=== PATIENT | male | born 1990 | race Caucasian/White ===

== ENCOUNTER 2017-04-10 18:15 | Emergency (ER) | payer SELFPAY ==
[2017-04-10 18:22] VITALS: BP 108/53; PULSE 106; RESP 18; TEMP 38.2; O2SAT 95; BMI 25.2
--- NOTE | 2017-04-10 19:41 | ED.DCSUM_ITS ---
- ER Visit Summary Date of Service: 04/10/17 Chief Complaint: Vomiting and diarrhea History of Present Illness: The patient is a 27 M presenting with abdominal pain , nausea, vomiting, diarrhea. States this started this morning. He complains of abdominal pain only with vomiting. He has low back pain. He has had multiple episodes of vomiting and 3 episodes of diarrhea today. He denies blood in his stool. Denies other complaints. Physical Examination: Vitals are stable. Temperature 100.8. Alert no acute distress. HEENT exam is unremarkable. Neck is supple. Lungs are clear and equal bilaterally. Heart is regular rate and rhythm. Abdomen is soft nontender nondistended. No guarding or rebound Back: mild right CVA tenderness Extremities are unremarkable. Skin is warm and dry. Remainder of exam is unremarkable. Emergency Department Course and Treatment: Patient is given IV fluids, Toradol, Zofran. CBC shows a white count of 18.7. BUN and creatinine are 19, 1.31. He was given additional IV fluids. Urinalysis is unremarkable. Patient is feeling much improved in the emergency department. Abdominal exam continues to be soft and nontender with no rebound or guarding. He is able to tolerate p.o. He is requesting to go home. He is given Dr. Mcnulty automotive service professional for no doc for follow-up. He is advised return to ED for worsening complaints. Disposition: Discharge home Impression: Vomiting and diarrhea This note was generated with [employer] dictation software. It may contain incorrect words, spelling, and punctuation that were not noted in review of the chart prior to signing ED Disposition - Plan for ED Patient: Chief Complaint: Nausea/Vomiting/Diarrhea Referrals: Care Physician,No Primary [Primary Care Provider] -
[2017-04-10] MEDS: 0.9% Normal Saline 1,000 ML 1000 ML IV (19:54)
[2017-04-10] MEDS: Ondansetron 4 MG/2 ML Vial IV (19:55)
[2017-04-10] MEDS: Ketorolac 30 MG/ML Syringe IV (19:55)
[2017-04-10 20:02] LABS: Anion Gap 7 (5-15); BUN 19 mg/dL (7-18); BUN/Creat Ratio 14.5 RATIO (10-20); Calcium,Total 8.9 mg/dL (8.5-10.1); Chloride 107 mmol/L (98-107); Creatinine, Serum 1.31 mg/dL (0.70-1.30); EST Glomerular Filtration Rate 70 mL/min (>60); Est Glom Filt Rate - Afr Amer 84 mL/min (>60); Estimated Creatinine Clearance 87.46 ml/min; Glucose 110 mg/dL (70-110); Potassium 4.4 mmol/L (3.5-5.1); Sodium Level 141 mmol/L (136-145)
[2017-04-10 20:05] LABS: Absolute Lymphocyte Count 0.71 X10^3/ul (0.83-4.51); Absolute Neutrophil Count 16.7 X10^3/uL (2.0-7.7); Basophil# 0.02 X10^3/uL; Basophil% 0.1 % (0-1); Eosinophils% 1.6 % (0-5); Hematocrit 51.5 % (40-54); Hemoglobin 17.1 g/dl (13.0-16.5); Lymphocyte # 0.71 X10^3/ul (4.0); Lymphocyte % 3.8 % (19-41); Mean Corp Hgb Conc 33.2 g/gl (32-36); Mean Corpuscular Hgb 28.5 pg (27.0-32.0); Mean Corpuscular Volume 85.8 fL (80-94); Mean Platelet Vol. 11.8 fl (6.2-12.0); Monocyte# 0.94 X10^3/uL; Neutrophil # 16.73 X10^3/uL (2.7-7.7); Neutrophil % 89.3 % (47-70); Platelet Count 224 K/mm3 (150-450); RBC Distribution Width CV 13.9 % (11.6-14.6); White Blood Count 18.7 K/mm3 (4.4-11.0)
[2017-04-10 20:10] LABS: POSITIVE COUNT NO; POSITIVE DIFFERENTIAL NO; POSITIVE MORPHOLOGY NO
[2017-04-10] MEDS: 0.9% Normal Saline 1,000 ML 500 ML IV (20:55)
[2017-04-10 20:59] VITALS: BP 110/60; PULSE 87; RESP 16; O2SAT 96
[2017-04-10] MEDS: 0.9% Normal Saline 1,000 ML 999 ML IV (22:00)
[2017-04-10 22:08] LABS: Bacteria 0 SEEN /hpf (None Seen); Mucous, Urine 0 SEEN /hpf (<or=2+); Squamous Epithelial Cells - UA 0 SEEN /hpf (0-5); White Blood Cells 0 SEEN /hpf (0-5)
[2017-04-10 22:12] LABS: Color, Urine Yellow (Yellow); Glucose, Dipstick Normal (Normal); Ketone-Dipstick Negative (Negative); Leukocyte Esterase-Dipstick 25 /ul (Negative); Nitrite-Dipstick Negative (Negative); Occult Blood-Urine Negative /ul (Negative); Protein-Dipstick Negative (Negative); Specific Gravity, Urine 1.015 (1.002-1.030); Urine Clarity Clear (Clear); Urine Urobilinogen Normal (Normal)
[2017-04-10 22:15] LABS: Urine Bilirubin Dipstick 1 mg/dL (Negative)
[2017-04-10 22:18] VITALS: BP 96/53; O2SAT 96
[2017-04-10 22:20] LABS: Red Blood Cells-Urine 0-5 SEEN /hpf (0-5)
[2017-04-10 23:21] VITALS: BP 120/85; PULSE 83; RESP 16
--- NOTE | 2017-04-10 23:30 | ED.DEP ---
ED Disposition - Plan for ED Patient: Chief Complaint: Nausea/Vomiting/Diarrhea Instructions: ED Vomiting Diarrhea Nonspecific Ad Prescriptions: Ondansetron [Zofran Odt] 4 mg PO Q8H PRN PRN #10 tablet PRN Reason: Nausea Referrals: Care Physician,No Primary [Primary Care Provider] - Xander Mcnulty III, MD [STAFF PHYSICIAN] -
== END 2017-04-10 23:36 | disposition home or self-care (01) ==
PROVIDERS: Emergency Provider Emergency Medicine
DX: R11.2 Nausea with vomiting, unspecified (principal); R19.7 Diarrhea, unspecified
CPT/HCPCS: 80048; 81001; 85025; 87804; 96361; 96374; 96375; 99283; J7030; A4216; J2405

== ENCOUNTER 2017-07-31 15:29 | Emergency (ER) | payer MEDICAID, SELFPAY ==
[2017-07-31 15:30] VITALS: BP 137/99; PULSE 86; RESP 16; TEMP 37.1; O2SAT 96; BMI 24.3
--- NOTE | 2017-07-31 16:16 | NURSING ---
DR MISHA PRIDE
--- NOTE | 2017-07-31 16:50 | ED.VISSUMM ---
- ER Visit Summary Date of Service: 07/31/17 Chief Complaint: Eye pain History of Present Illness: The patient is a 27 M left eye pain that started this morning. It gradually got worse. He noted itching, redness, pain and watering. He tried Visine and allergy meds but they are not helping. He does not wear contact lenses. He denies any injury or trauma. Physical Examination: Vital signs unremarkable. Afebrile. Visual acuity OU 20/30, OD 20/25, OS 20/50. Skin appears normal. Extraocular structures normal. Eye is watering. No discharge. No foreign bodies noted. Eyelids everted. Pupils normal and reactive. Iris unremarkable. I do grossly visualize what appears to be a corneal abrasion. Test Results: None Emergency Department Course and Treatment: Fluorescein strips not available. I checked the visual acuity. I could appreciate a corneal abrasion grossly. No other concerning findings or features. I spoke with Dr. Burgos. He can follow-up with the patient tomorrow. I will start the patient on erythromycin ophthalmic. He was given a work note. Return for new or worsening issues. Treatment Plan: As above Disposition: Discharge Impression: 1. Left eye pain This note was generated with [employer] dictation software. It may contain incorrect words, spelling, and punctuation that were not noted in review of the chart prior to signing ED Disposition - Plan for ED Patient: Chief Complaint: Eye Problem Referrals: Care Physician,No Primary [Primary Care Provider] -
--- NOTE | 2017-07-31 16:54 | ED.DCSUM_ITS ---
- ER Visit Summary Date of Service: 07/31/17 Chief Complaint: Eye pain History of Present Illness: The patient is a 27 M left eye pain that started this morning. It gradually got worse. He noted itching, redness, pain and watering. He tried Visine and allergy meds but they are not helping. He does not wear contact lenses. He denies any injury or trauma. Physical Examination: Vital signs unremarkable. Afebrile. Visual acuity OU 20/ 30, OD 20/25, OS 20/50. Skin appears normal. Extraocular structures normal. Eye is watering. No discharge. No foreign bodies noted. Eyelids everted. Pupils normal and reactive. Iris unremarkable. I do grossly visualize what appears to be a corneal abrasion. Test Results: None Emergency Department Course and Treatment: Fluorescein strips not available. I checked the visual acuity. I could appreciate a corneal abrasion grossly. No other concerning findings or features. I spoke with Dr. Burgos. He can follow -up with the patient tomorrow. I will start the patient on erythromycin ophthalmic. He was given a work note. Return for new or worsening issues. Treatment Plan: As above Disposition: Discharge Impression: 1. Left eye pain This note was generated with [employer] dictation software. It may contain incorrect words, spelling, and punctuation that were not noted in review of the chart prior to signing ED Disposition - Plan for ED Patient: Chief Complaint: Eye Problem Referrals: Care Physician,No Primary [Primary Care Provider] -
--- NOTE | 2017-07-31 16:54 | ED.DEP ---
ED Disposition - Plan for ED Patient: Chief Complaint: Eye Problem Instructions: Corneal Injury Referrals: Winston Burgos MD [STAFF PHYSICIAN] - 1 Day
[2017-07-31 17:05] VITALS: BP 127/85; RESP 14
[2017-07-31] MEDS: Erythromycin Base 1 OPTH.TUBE 1 APPLIC LEFT EYE (17:05)
== END 2017-07-31 17:06 | disposition home or self-care (01) ==
PROVIDERS: Emergency Provider Emergency Medicine
DX: H57.12 Ocular pain, left eye (principal); J45.909 Unspecified asthma, uncomplicated; F17.220 Nicotine dependence, chewing tobacco, uncomplicated
CPT/HCPCS: 99283

== ENCOUNTER 2017-09-13 09:52 | Emergency (ER) | payer SELFPAY ==
[2017-09-13 09:53] VITALS: BP 137/89; PULSE 92; RESP 16; TEMP 36.4; O2SAT 95; BMI 25.4
[2017-09-13 10:10] VITALS: PULSE 98; RESP 16; O2SAT 95
[2017-09-13] MEDS: Ipratropium/Albuterol Sulfate 3 ML AMPUL.NEB INHALATION (10:10)
[2017-09-13] MEDS: predniSONE 20 MG Tablet 60 MG PO (10:10)
--- NOTE | 2017-09-13 10:10 | ED.DCSUM_ITS ---
- ER Visit Summary Date of Service: 09/13/17 Chief Complaint: Asthma History of Present Illness: The patient is a 27 M presenting for evaluation secondary to asthma exacerbation. Patient states that he has a underlying long time history of mild intermittent asthma. He states that he has a rescue inhaler typically. Patient reports that he does not use it every day, and is not on any sort of any daily inhaled corticosteroids. Patient reports that he is out of his rescue inhaler now, and has had wheezing since this morning. He denies any preceding fever cough sore throat runny nose nausea vomiting or any other infectious symptoms. Patient does not have primary care doctor. Physical Examination: Vital signs within normal limits patient's oxygen saturation 95%. Well-nourished male no acute distress. Moist mucous membranes. Neck supple. Heart was regular rate and rhythm, lungs sounds showed evidence of wheezes throughout the lung modi with no respiratory distress or retractions. Patient speaking in full sentences. Remainder physical otherwise unremarkable. Test Results: None indicated Emergency Department Course and Treatment: Patient presented for evaluation secondary to shortness of breath. He had wheezing on exam and bilaterally symmetric lung sounds. I do not believe that x-ray is necessary. Patient was given a DuoNeb breathing treatment in the emergency department prednisone. I will discharge the patient with a prescription for albuterol and a prednisone burst. Patient was given Dr. Salazar from the referral list for primary care follow-up. Disposition: Discharge Impression: 1. Asthma exacerbation This note was generated with [employer] dictation software. It may contain incorrect words, spelling, and punctuation that were not noted in review of the chart prior to signing ED Disposition - Plan for ED Patient: Disposition: Home or Assisted Living Chief Complaint: Asthma Diagnosis: Asthma exacerbation Instructions: ED Reactive Airway Disease Prescriptions: Albuterol Inhaler [Ventolin Hfa] 1 - 2 puff INHALATION Q4H PRN PRN #1 inhaler PRN Reason: Wheezing Prednisone [Deltasone] 60 mg PO DAILY #15 tab Referrals: Pradeep Salazar MD [STAFF PHYSICIAN] - 1 Week if not improving
[2017-09-13 10:11] VITALS: PULSE 85; RESP 20; O2SAT 98
== END 2017-09-13 10:16 | disposition home or self-care (01) ==
PROVIDERS: Emergency Provider Emergency Medicine
DX: J45.21 Mild intermittent asthma with (acute) exacerbation (principal)
CPT/HCPCS: 94640; 99283

== ENCOUNTER 2017-11-10 02:45 | Emergency (ER) | payer SELFPAY ==
[2017-11-10 02:46] VITALS: BP 129/76; PULSE 98; RESP 20; TEMP 36.5; O2SAT 90; BMI 26.3
--- NOTE | 2017-11-10 02:48 | ED.DEP ---
ED Disposition - Plan for ED Patient: Disposition: Home or Assisted Living Chief Complaint: Asthma Instructions: Understanding Asthma Prescriptions: Prednisone [Deltasone] 60 mg PO DAILY #15 tab Referrals: Care Physician,No Primary [Primary Care Provider] - Pradeep Salazar MD [STAFF PHYSICIAN] -
[2017-11-10] MEDS: predniSONE 20 MG Tablet 60 MG PO (02:51)
--- NOTE | 2017-11-10 02:53 | ED.VISSUMM ---
- ER Visit Summary Date of Service: 11/10/17 Chief Complaint: [] Asthma flare History of Present Illness: The patient is a 27 M complaining of asthma that happened just prior to arrival tonight when he woke up. [place] fine before bed. His last flare was the beginning of last month. Had been doing well up until now. He is out of his inhaler. Physical Examination: [] Vital signs reviewed General: Well-nourished well-developed Head: Normocephalic atraumatic Eyes: Pupils equal round and reactive to light extraocular movements intact ENT: TMs clear no hemotympanum no trauma Neck: Nontender full range of motion Cardiovascular: Regular rate rhythm no murmurs normal S1-S2 Respiratory: Mild short of breath with diffuse wheezing throughout all lung modi expiratory phase only. No accessory muscle use. Speaking full sentences. Abdomen: Soft nontender nondistended normal bowel sounds no masses Back: Nontender no CVA tenderness Extremities: Nontender active range of motion ?4 extremities no trauma Skin: Normal color no trauma Neuro alert oriented cranial nerves II through XII intact normal strength sensation reflexes Test Results: [] Emergency Department Course and Treatment: [] Given albuterol nebulizer treatment ?3 and Atrovent ?1. Given oral prednisone. [place] much better with significant decrease in wheezing afterwards. Will be discharged with oral prednisone and an inhaler prescription. Treatment Plan: [] Disposition: [] Impression: [] Acute asthma exacerbation This note was generated with [employer] dictation software. It may contain incorrect words, spelling, and punctuation that were not noted in review of the chart prior to signing ED Disposition - Plan for ED Patient: Disposition: Home or Assisted Living Chief Complaint: Asthma Instructions: Understanding Asthma Prescriptions: Albuterol Inhaler [Ventolin Hfa] 2 - 4 puff INHALATION Q4H PRN PRN 30 Days #1 inhaler PRN Reason: Wheezing Prednisone [Deltasone] 60 mg PO DAILY #15 tab Referrals: Pradeep Salazar MD [STAFF PHYSICIAN] - Care Physician,No Primary [Primary Care Provider] -
[2017-11-10] MEDS: Ipratropium/Albuterol Sulfate 3 ML AMPUL.NEB INHALATION (02:55)
[2017-11-10] MEDS: Albuterol 2.5 MG/3 ML VIAL.NEB. INHALATION ×3 (02:56→03:06)
[2017-11-10 02:57] VITALS: PULSE 86; RESP 22
[2017-11-10 03:03] VITALS: PULSE 88; RESP 18
[2017-11-10 03:08] VITALS: PULSE 100; RESP 18
[2017-11-10 03:29] VITALS: BP 123/66; PULSE 109; RESP 18; O2SAT 93
--- NOTE | 2017-11-11 11:32 | CM.ED ---
ED CALLBACK: Follow-up call to patient attempted with no answer. Voicemail left with return contact information.
== END 2017-11-10 03:29 | disposition home or self-care (01) ==
PROVIDERS: Emergency Provider Emergency Medicine
DX: J45.901 Unspecified asthma with (acute) exacerbation (principal)
CPT/HCPCS: 94640; 99283

== ENCOUNTER 2018-01-02 10:49 | Emergency (ER) | payer SELFPAY ==
[2018-01-02 10:50] VITALS: BP 132/90; PULSE 104; RESP 17; TEMP 36.6; O2SAT 94; BMI 26.4
[2018-01-02 11:01] VITALS: PULSE 103; RESP 18
[2018-01-02] MEDS: Albuterol 2.5 MG/3 ML VIAL.NEB. INHALATION ×2 (11:01)
[2018-01-02] MEDS: Ipratropium/Albuterol Sulfate 3 ML AMPUL.NEB INHALATION (11:01)
[2018-01-02] MEDS: predniSONE 20 MG Tablet 60 MG PO (11:07)
--- NOTE | 2018-01-02 11:09 | ED.DCSUM_ITS ---
- ER Visit Summary Date of Service: 01/02/18 Chief Complaint: Shortness of breath History of Present Illness: The patient is a 27 M presents to the emergency department shortness of breath. Patient has a long-standing history of asthma. He states normally, he just uses a rescue inhaler. He states over the past 3 days, shortness of breath is worsened. He ran out of his inhaler yesterday. He states today, he just felt tight and short of breath. He had a scant cough without productive sputum. He denies any fevers or chills. He denies any chest pain. Last time he was on prednisone was months ago. Physical Examination: Vital signs reviewed General: Well-nourished, well-developed Head: Normocephalic, atraumatic Eyes: Pupils equal and reactive, extraocular muscles intact Neck, supple, no lymphadenopathy Heart: Regular rate and rhythm Respiratory: No distress, wheezing throughout with prolonged expiration Abdomen: Soft, nontender, nondistended, no peritoneal signs Back: Nontender Extremities: Nontender, no edema, no cords Skin: Normal color no rash Neuro: Alert and oriented, no focal or lateralizing deficits Test Results: [] Emergency Department Course and Treatment: The patient presents with wheezing and is out of his inhaler. He has no focal change in lung sounds. He is not hypoxic. She was given oral steroids and nebulized breathing treatments. On reevaluation, he is markedly improved. He has no tachypnea. He has no hypoxia. He is moving air without issue. At this time, I do feel that he is safe for outpatient therapy. He will be continued on prednisone. I will refill his inhaler. He will be discharged home. Treatment Plan: [] Disposition: Discharge Impression: Acute asthma exacerbation This note was generated with [employer] dictation software. It may contain incorrect words, spelling, and punctuation that were not noted in review of the chart prior to signing ED Disposition - Plan for ED Patient: Chief Complaint: Asthma Instructions: ED Reactive Airway Disease Prescriptions: Albuterol Inhaler [Ventolin Hfa] 2 puff INHALATION Q4H PRN PRN #1 inhaler PRN Reason: Wheezing Prednisone 10 mg PO UD #33 tab Referrals: Care Physician,No Primary [Primary Care Provider] -
[2018-01-02 11:10] VITALS: O2SAT 97
[2018-01-02 12:18] VITALS: PULSE 95; RESP 18; O2SAT 98
--- NOTE | 2018-01-03 10:24 | CM.ED ---
ED CALLBACK: Follow-up call attempted. No ring-tone and voicemail states a different first name. Will reattempt as time allows. Will not leave voicemail on this machine.
== END 2018-01-02 12:28 | disposition home or self-care (01) ==
LOC: ED 11:03
PROVIDERS: Emergency Provider Emergency Medicine
DX: J45.901 Unspecified asthma with (acute) exacerbation (principal); Z79.51 Long term (current) use of inhaled steroids
CPT/HCPCS: 94640; 99284